=== PATIENT | male | born 1965 | race Caucasian/White ===

== ENCOUNTER → 2016-09-17 | Outpatient (CLI) | payer OTHER ==
[~2016-09-17] VITALS: Ht 170.2 cm; Wt 93.0 kg
[~2016-09-17] MED LIST: ALEVE220 MG PO; AMITRIPTYLINE H10 M1 PO; AMITRIPTYLINE H25 M4 PO; ASPIRIN81 M2 PO; BRINTELLIX20 MG PO; CENTRUM SILVER1 EAC4 PO; CEPACOL SORE T1 EAC9 PO; CIALIS5 MG PO; CLONAZEPAM 0.50.5 M1 PO; CLONAZEPAM 1 MG1 M1 PO; COLACE100 MG PO; COMPOUND CREAM; CYMBALTA30 MG PO; CYMBALTA60 MG PO; ELAVIL PO; FISH OIL 1,001000 M2 PO; FLEXERIL PO; HYDROCHLOROTH12.5 MG PO; HYDROCODON-ACE1 EAC8 PO; HYDROCODONE-AP1 EAC6 PO; IBUPROFEN 200200 M1 PO; LEVOTHYROXIN0.075 MG PO; LIDOCAINE VISC100 ML MM; MELOXICAM7.5 MG PO; MOBIC15 MG PO; NABUMETONE 500500 M1 PO; NABUMETONE 750750 M1 PO; NAPROSYN500 MG PO; NEURONTIN 300300 M1 PO; NORCO 10-325 T1 EACH PO; NORCO 5-325 TA1 EACH PO; NORCO 7.5-3251 EACH PO; NORVASC 5 MG TAB5 MG PO; OMEPRAZOLE 20 M20 M1 PO; OMEPRAZOLE40 MG PO; PERCOCET 5-3251 EACH PO; PERCOCET 7.5-31 EAC1 PO; PRILOSEC40 MG PO; SIMVASTATIN20 MG PO; SYNTHROID300 MCG PO; TIZANIDINE HCL 22 M1 PO; VIAGRA50 MG PO; XANAX 0.5 MG0.5 MG PO; ZANAFLEX4 MG PO; ZESTRIL10 MG PO; ZOCOR 10 MG TAB10 MG PO; [UNRECOGNIZED DRUG - REMARK]
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
[2016-09-17 13:18] VITALS: BP 115/88
== END | disposition home or self-care (01) ==
LOC: PAIN 07:26
DX: M54.16 Radiculopathy, lumbar region (principal); F41.8 Other specified anxiety disorders; F43.10 Post-traumatic stress disorder, unspecified; Z98.890 Other specified postprocedural states

== ENCOUNTER → 2016-12-06 | Outpatient (CLI) | payer OTHER ==
[~2016-12-06] VITALS: Ht 170.2 cm; Wt 88.5 kg
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
[2016-12-06 10:23] VITALS: BP 135/96
== END | disposition home or self-care (01) ==
LOC: PAIN 06:57
DX: M54.16 Radiculopathy, lumbar region (principal); M53.3 Sacrococcygeal disorders, not elsewhere classified; F43.10 Post-traumatic stress disorder, unspecified; M25.572 Pain in left ankle and joints of left foot; F11.20 Opioid dependence, uncomplicated; F41.1 Generalized anxiety disorder; Z96.652 Presence of left artificial knee joint; Z98.890 Other specified postprocedural states

== ENCOUNTER 2016-12-22 18:31 | Emergency (ER) | payer OTHER ==
[~2016-12-22] VITALS: Ht 170.2 cm; Wt 86.2 kg
[2016-12-22] MEDS ORDERED: NORCO 5-325 TA1 EACH PO (21:07)
[2016-12-22] MEDS ORDERED: ROBAXIN 750 MG750 M1 PO (21:07)
[2016-12-22] MEDS ORDERED: ANTIVERT25 MG PO (21:33)
== END 2016-12-22 21:49 | disposition home or self-care (01) ==
LOC: ER 18:31
DX: S33.5XXA Sprain of ligaments of lumbar spine, initial encounter (principal); S83.92XA Sprain of unspecified site of left knee, initial encounter; S70.02XA Contusion of left hip, initial encounter; S09.90XA Unspecified injury of head, initial encounter; Z88.1 Allergy status to other antibiotic agents; Z88.8 Allergy status to other drugs, medicaments and biological substances; V21.4XXA Motorcycle driver injured in collision with pedal cycle in traffic accident, initial encounter; Y93.55 Activity, bike riding; Y92.488 Other paved roadways as the place of occurrence of the external cause; Y99.9 Unspecified external cause status

== ENCOUNTER → 2016-12-28 | Outpatient (CLI) | payer OTHER ==
[~2016-12-28] VITALS: Ht 170.2 cm; Wt 88.0 kg
[~2016-12-28] MED LIST changes: +ANTIVERT25 MG PO; +BRINTELLIX5 MG PO; +PERCOCET 7.5-31 EACH PO; +ROBAXIN 750 MG750 M1 PO
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
[2016-12-28 13:43] VITALS: BP 139/86
== END ==
LOC: PAIN 12:54
DX: M54.16 Radiculopathy, lumbar region (principal); F41.9 Anxiety disorder, unspecified; F43.10 Post-traumatic stress disorder, unspecified

== ENCOUNTER 2017-04-01 12:31 | Emergency (ER) | payer OTHER ==
[~2017-04-01] VITALS: Ht 170.2 cm; Wt 84.8 kg
[~2017-04-01 12:31] MED LIST changes: +BRINTELLIX10 MG PO
[2017-04-01] MEDS ORDERED: VIAGRA25 MG PO (13:37)
[2017-04-01] MEDS ORDERED: ABILIFY10 MG PO (13:38)
[2017-04-01 13:49] LABS: URINE BILIRUBIN NEGATIVE (Negative); URINE BLOOD NEGATIVE (Negative); URINE COLOR YELLOW; URINE GLUCOSE-RANDOM* NEGATIVE (Negative); URINE KETONES NEGATIVE (Negative); URINE LEUKOCYTES-REFLEX NEGATIVE (Negative); URINE PROTEIN (DIPSTICK) NEGATIVE (Negative); URINE UROBILINOGEN 0.2 E.U./dl (0.2-1.0)
[2017-04-01 13:59] LABS: AMP/METHAMP Negative (Negative); BARBITURATES Negative (Negative); BENZODIAZEPINES Negative (Negative); COCAINE Negative (Negative); METHADONE Negative (Negative); OPIATES POSITIVE (Negative); PCP Negative (Negative); THC POSITIVE (Negative)
[2017-04-01 14:11] LABS: HEMATOCRIT 44.7 % (42.0-52.0); HEMOGLOBIN 15.8 gm/dL (14.0-18.0); MCH 32.6 pg (26.0-34.0); MCHC 35.2 g/dL (28.0-37.0); MCV 92.6 fL (80.0-100.0); RBC 4.83 mil/uL (4.50-6.00); RDW 12.4 % (10.5-14.5); WBC 8.8 thou/uL (4.0-11.0)
[2017-04-01 14:20] LABS: ANION GAP 11 mmol/L (7-16); BUN 17 mg/dL (7-18); CALCIUM 9.2 mg/dL (8.5-10.1); CHLORIDE 100 mmol/L (98-107); CO2 25 mmol/L (21-32); GLUCOSE 103 mg/dL (74-106); POTASSIUM 3.9 mmol/L (3.5-5.1); SALICYLATE < 2.8 mg/dL (2.8-20.0); SODIUM 136 mmol/L (136-145)
[2017-04-04] MEDS ORDERED: ARIPIPRAZOLE10 MG PO (14:44)
[2017-04-04] MEDS ORDERED: BUPRENORPHIN-N1 EACH SL (14:52)
[2017-04-04] MEDS ORDERED: NEURONTIN 300300 M1 PO (14:52)
[2017-04-04] MEDS ORDERED: ZANAFLEX4 MG PO (14:52)
== END 2017-04-01 16:16 | disposition home or self-care (01) ==
LOC: ER 12:31
PROVIDERS: Emergency Medicine
DX: F12.10 Cannabis abuse, uncomplicated (principal); Z88.1 Allergy status to other antibiotic agents; Z88.8 Allergy status to other drugs, medicaments and biological substances

== ENCOUNTER → 2017-04-04 | Outpatient (CLI) | payer OTHER ==
[~2017-04-04] VITALS: Ht 170.2 cm; Wt 90.7 kg
[~2017-04-04] MED LIST changes: +ABILIFY10 MG PO; +ARIPIPRAZOLE10 MG PO; +BUPRENORPHIN-N1 EACH SL; +VIAGRA25 MG PO
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
[2017-04-04 14:36] VITALS: BP 108/65
== END | disposition home or self-care (01) ==
LOC: PAIN 07:25
DX: Z76.0 Encounter for issue of repeat prescription (principal); M54.16 Radiculopathy, lumbar region; F43.10 Post-traumatic stress disorder, unspecified; F41.8 Other specified anxiety disorders; F32.89 Other specified depressive episodes; Z79.891 Long term (current) use of opiate analgesic; Z98.890 Other specified postprocedural states

== ENCOUNTER → 2017-04-29 | Outpatient (CLI) | payer OTHER ==
[~2017-04-29] VITALS: Ht 170.2 cm; Wt 89.0 kg
[~2017-04-29] MED LIST changes: +BUPRENORPHN-NA1 EACH SUBLING
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
[2017-04-29 10:47] VITALS: BP 131/95
== END | disposition home or self-care (01) ==
LOC: PAIN 07:07
DX: Z51.81 Encounter for therapeutic drug level monitoring (principal); M54.16 Radiculopathy, lumbar region; I10 Essential (primary) hypertension; G89.29 Other chronic pain; F41.8 Other specified anxiety disorders; Z88.2 Allergy status to sulfonamides; Z88.8 Allergy status to other drugs, medicaments and biological substances; Z98.890 Other specified postprocedural states; Z79.891 Long term (current) use of opiate analgesic; Z87.891 Personal history of nicotine dependence; Z79.82 Long term (current) use of aspirin; Z79.899 Other long term (current) drug therapy

== ENCOUNTER → 2017-06-03 | Outpatient (CLI) | payer OTHER ==
[~2017-06-03] VITALS: Ht 170.2 cm; Wt 82.1 kg
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
[2017-06-03 08:44] VITALS: BP 125/83
== END | disposition home or self-care (01) ==
LOC: PAIN 07:09
DX: M54.16 Radiculopathy, lumbar region (principal); M54.5 Low back pain; F43.10 Post-traumatic stress disorder, unspecified; M79.1 Myalgia; Z79.899 Other long term (current) drug therapy; Z87.891 Personal history of nicotine dependence

== ENCOUNTER → 2017-09-19 | Outpatient (CLI) | payer OTHER ==
[~2017-09-19] VITALS: Ht 170.2 cm; Wt 84.4 kg
[~2017-09-19] MED LIST changes: +LAMICTAL100 MG PO; +SUBOXONE 8 MG-1 EAC3 SUBLING
--- NOTE | ~2017-09-19 | HPC ---
[facility] [place] [address] PAIN MANAGEMENT CONSULTATION Name: KARIEMAYRA DEENA Room #: REG aSra Stephens#: [id number] Admission: 09/19/17 Attend Phys: Florencio Menezes DO Discharge: Date of : 63 Report #: [id number] THIS REPORT FOR: //name// CC: Anegl Menezes The patient is an unfortunate 51-year-old gentleman, typically treated for cervical radiculopathy status post decompressive laminectomy, axial back pain requiring high risk complex medication management. Comorbidities include significant PTSD. The patient last in the pain clinic 07/29/2017, continued on Suboxone 8/2 daily. [facility] He has "graduated" from this course. He returns to pain clinic today noting current medication is helpful with chronic daily pain, axial back pain primarily. He had cervical fusion back in January of 2014 with improvement of radicular symptoms. He notes that since we stopped the tizanidine, his upper thoracic paravertebral muscles seem to be getting little bit worse. Last drug screen was 07/01/2017, positive for prescribed medications. Today, we did talk about association of nicotine with axial back pain. He does use an oral tobacco "chew." The patient was counseled regarding discontinuing this. He notes overall pain is 5 on a VAS, again primarily upper back, shooting, stabbing pain exacerbated with standing and walking. 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 Physical exam shows 51-year-old gentleman, BMI is 29.1 kilograms per meter squared. Blood pressure is modestly elevated 152/99, pulse 80, respiration 16. The patient notes he just drank a "energy drink" before he came in to the clinic and also just got word, in fact while he was in our clinic that his had lost her job. I believe she was the primary breadwinner in their home and his insurance may actually be through her as well. Hence, he is a little anxious as one might expect. He rises from chair using armrest. Gait is tandem, has diffuse tenderness in the thoracic, lumbar paravertebral muscles. No discrete tear was noted. Range of motion is slightly limited in thoracic and lumbar spine. Upper extremity strength is preserved. We reviewed the fact that opiate medications are being used to provide analgesia adequate to support activities of daily living, not attempting to achieve a specific pain score on the 0-10 Visual Analog Scale. The current opiate medications are providing sufficient analgesia to allow the patient to participate in activities of daily living. The patient is not exhibiting any aberrant behavior suggestive of drug diversion. The patient is not having any adverse reactions to medications. The patient is not suffering from daytime [address] [address] PAIN MANAGEMENT CONSULTATION Name: MAYRA TIWARI Room #: REG CL Kat#: [id number] Admission: 09/19/17 Attend Phys: Florencio Menezes DO Discharge: Date of : 63 Report #: [id number] somnolence or mental acuity changes. The patient is managing opiate-induced constipation with appropriate [id number]-oemvmzr agents and dietary considerations. The patient was counseled on concern for caution with operating a motor vehicle while using opiate medications. A physical exam was performed and the patient's functional status was evaluated. All patients with back pain were advised against the bed rest greater than 4 days and were advised to return to normal activities. Pain score assessment was noted and the treatment plan was reviewed with the patient. All current medications, both prescribed and OTC were reviewed and reconciled on the electronic medical record. Tobacco screening was accomplished and smoking cessation was advised when indicated. BMI was noted and diet/exercise modification was recommended for all patients following outside normal parameters. I reviewed with the patient today their responsibilities to safeguard prescription medications, reviewed their responsibility to utilize medications only as prescribed by the physician. They are to seek and receive pain medications only from 1 physician group ( [facility]). They are to use 1 pharmacy and keep the clinic informed if they change pharmacies. Their responsibilities include making followup visits in a timely fashion and to avoid abrupt discontinuation of medication usage. Their responsibilities further include bringing their medications (bottles from the pharmacy with residual pills) to the visit for possible confirmation of pill counts and the patient understands it is their responsibility to submit to random drug screens to ensure both that the medications prescribed are present, and that no other controlled substances are present. All prescriptions provided today were generated electronically. ASSESSMENT: Axial back pain in a gentleman with status post anterior cervical disk fusion with chronic pain syndrome requiring high risk complex medication management. Comorbidity includes posttraumatic stress disorder. RECOMMENDATION: Continue Suboxone 8/2 daily. He [facility] I encouraged him to continue routine counseling for opiate habituation and sobriety. Today, we elected to continue Suboxone 8/2 one a day, taken the liberty of writing for 30, either film strip or tablets depending on insurance coverage with a second prescription release in 4 weeks. We will continue gabapentin, 300 mg 1 in the morning, 1 at noon, and 2 at night, and we will resume tizanidine 4 mg up to t.i.d. for spasm. [address] [address] PAIN MANAGEMENT CONSULTATION Name: MAYRA TIWARI Room #: REG [facility].#: [id number] Admission: 09/19/17 Attend Phys: Florencio Menezes DO Discharge: Date of : 63 Report #: [id number] Discharged in good and stable condition. <ELECTRONICALLY SIGNED> By: Florencio Menezes DO 09/20/17 0757 [id number] 1804 Florencio Menezes DO /nt
[2017-09-19 11:38] VITALS: BP 152/99
== END ==
LOC: PAIN 06:19
DX: M54.12 Radiculopathy, cervical region (principal); M54.9 Dorsalgia, unspecified; F43.10 Post-traumatic stress disorder, unspecified; G89.4 Chronic pain syndrome; Z79.899 Other long term (current) drug therapy; Z98.890 Other specified postprocedural states; X58.XXXA Exposure to other specified factors, initial encounter; Y93.89 Activity, other specified; Y92.89 Other specified places as the place of occurrence of the external cause; Y99.8 Other external cause status

== ENCOUNTER → 2017-11-25 | Outpatient (CLI) | payer OTHER ==
[~2017-11-25] VITALS: Ht 170.2 cm; Wt 80.3 kg
--- NOTE | ~2017-11-25 | HPC ---
[facility] [place] [address] [place] [address] PAIN MANAGEMENT CONSULTATION Name: MAYRA TIWARI Room #: REG Sara Stephens#: [id number] Admission: 11/25/17 Attend Phys: Florencio Menezes DO Discharge: Date of : 63 Report #: [id number] THIS REPORT FOR: //name// CC: Angel Menezes DATE OF SERVICE: 11/25/2017 The patient is a 52-year-old gentleman being treated for axial back pain, history of cervical decompressive laminectomy, posttraumatic stress disorder requiring complex medication management. The patient was last seen in pain clinic on 09/19/2017. Continued on Suboxone 8/2 once a day; gabapentin 300 mg 1 in the morning, 1 in the afternoon, 2 at night: and tizanidine 4 mg up to 3 times a day for spasm. Last random drug screen on 07/01/2017 was positive for prescribed medications. He returns to pain clinic today noting medications generally enable him to participate in activities of daily living, rates his general pain score of 4 on a VAS. 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 He has ongoing axial back pain, thoracic paravertebral muscle tenderness. The patient notes he has been sober for 9 months. Last meeting he attended was 3 months ago. He did complete the [facility] post-traumatic stress disorder intensive therapy and is now attending psychological counseling and group sessions weekly at the [facility]. These groups are focused on pain management, stress reduction, distraction, etc. The patient's BMI is 27.7 kilograms per meter squared. Blood pressure is 129/73, pulse 71, respirations are 14. Subjective pain score is 4 on a VAS at present. He did fall on the ice, but is not generally a fall risk. He did fall on the ice once in the last 3 months, so he is generally not a fall risk. History of hypertension, medication list is reconciled. Opiate consent to treat contract was signed on 03/12/2016. As noted, we reviewed his prior random drug screen on 07/02/2017. The patient is a former smoker, he still uses some "tobacco chew," was counseled regarding the same. He rises from chair using armrest. Diffuse tenderness across the mid back. Lumbar flexion is modestly limited. Gait is tandem. Subjective pain in the left knee, though appliance appears to be intact in that his gait appears to be tandem and symmetric. He does have some hypertrophy of the right leg muscles in comparison to the left. We reviewed the fact that opiate medications are being used to provide analgesia [address] [address] PAIN MANAGEMENT CONSULTATION Name: MAYRA TIWARI Room #: REG Sara Stephens#: [id number] Admission: 11/25/17 Attend Phys: Florencio Menezes DO Discharge: Date of : 63 Report #: [id number] adequate to support activities of daily living, not attempting to achieve a specific pain score on the 0-10 Visual Analog Scale. The current opiate medications are providing sufficient analgesia to allow the patient to participate in activities of daily living. The patient is not exhibiting any aberrant behavior suggestive of drug diversion. The patient is not having any adverse reactions to medications. The patient is not suffering from daytime somnolence or mental acuity changes. The patient is managing opiate-induced constipation with appropriate vtgw-qss-bbggtqt agents and dietary considerations. The patient was counseled on concern for caution with operating a motor vehicle while using opiate medications. A physical exam was performed and the patient's functional status was evaluated. All patients with back pain were advised against the bed rest greater than 4 days and were advised to return to normal activities. Pain score assessment was noted and the treatment plan was reviewed with the patient. All current medications, both prescribed and OTC were reviewed and reconciled on the electronic medical record. Tobacco screening was accomplished and smoking cessation was advised when indicated. BMI was noted and diet/exercise modification was recommended for all patients following outside normal parameters. I reviewed with the patient today their responsibilities to safeguard prescription medications, reviewed their responsibility to utilize medications only as prescribed by the physician. They are to seek and receive pain medications only from 1 physician group ( [facility]). They are to use 1 pharmacy and keep the clinic informed if they change pharmacies. Their responsibilities include making followup visits in a timely fashion and to avoid abrupt discontinuation of medication usage. Their responsibilities further include bringing their medications (bottles from the pharmacy with residual pills) to the visit for possible confirmation of pill counts and the patient understands it is their responsibility to submit to random drug screens to ensure both that the medications prescribed are present, and that no other controlled substances are present. All prescriptions provided today were generated electronically. ASSESSMENT: 1. Chronic axial back pain. 2. History of cervical decompressive laminectomy in a gentleman status post multiple treatments for post-traumatic stress disorder; history of habituation, stable on chronic medication including Suboxone 8/2 once a day. Currently, [facility]. Continue gabapentin and tizanidine unchanged. Follow up in 2 months for reevaluation. <ELECTRONICALLY SIGNED> By: Florencio Menezes DO 11/29/17 0944 [id number] 1232 Florencio Menezes DO /nt
[2017-11-25 10:34] VITALS: BP 129/73
== END ==
LOC: PAIN 07:07
DX: G89.29 Other chronic pain (principal); M54.9 Dorsalgia, unspecified; F43.10 Post-traumatic stress disorder, unspecified; M96.1 Postlaminectomy syndrome, not elsewhere classified; Z79.899 Other long term (current) drug therapy